=== PATIENT | female | born 1940 | race Hispanic/Latino ===

== ENCOUNTER 2017-10-28 14:12 | Emergency (ER) | payer MEDICARE ==
[2017-10-28 15:26] LABS: APPEARANCE,URINE Cloudy (CLEAR); BILIRUBIN,URINE Negative (NEGATIVE); COLOR,URINE Dark Yellow (YELLOW); GLUCOSE, URINE (UA) Negative (NEGATIVE); KETONES,URINE Negative (NEGATIVE); LEUKOCYTE ESTERASE ,URINE Large (NEGATIVE); NITRATE,URINE Negative (NEGATIVE); OCCULT BLOOD,URINE Large (NEGATIVE); PH,URINE 6.5 (5.0-8.0); PROTEIN,URINE POS 1+ (NEGATIVE)
[2017-10-28 15:33] LABS: BASOPHILS % (AUTO) 0.6 % (0.0-5.0); EOSINOPHILS % (AUTO) 1.1 % (0.0-8.0); LYMPHOCYTES % (AUTO) 15.5 % (21.0-51.0); MEAN CORPUSCULAR HEMOGLOBIN 30.3 pg (27.0-33.0); MEAN CORPUSCULAR HGB CONC 34.6 g/dL (32.0-36.0); MEAN CORPUSCULAR VOLUME 87.5 fL (79-99); MONOCYTES % (AUTO) 9.5 % (3.0-13.0); NEUTROPHILS % (AUTO) 73.3 % (40.0-77.0); PLATELET COUNT (AUTO) 192 K/uL (130-400); RED BLOOD CELL COUNT(AUTO) 3.65 MIL/uL (4.00-5.50); RED CELL DISTRIBUTION WIDTH 13.1 % (11.0-15.5); WHITE BLOOD COUNT (AUTO) 8.2 K/uL (4.8-10.8)
[2017-10-28 15:37] LABS: BACTERIA,URINE Few /HPF (None Seen); WBC,URINE 51-100 /HPF (0-1)
[2017-10-28 15:38] LABS: RENAL EPITHELIAL CELLS,URINE Moderate /LPF (None Seen); TRANSITIONAL EPI CELLS,URINE Few /LPF (None Seen)
[2017-10-28 15:42] LABS: CREATININE 0.7 mg/dL (0.5-1.5); POTASSIUM 3.3 mmol/L (3.5-5.1)
[2017-10-28 15:47] LABS: ALBUMIN 3.3 g/dL (3.5-5.0); BILIRUBIN,TOTAL 0.4 mg/dL (0.2-1.0); TOTAL PROTEIN, SERUM 6.9 g/dL (6.0-8.3)
[2017-10-28] MEDS ORDERED: LIDOCAINE HCL-MPF 1% 2ML VIAL ONE (16:22)
[2017-10-28] MEDS ORDERED: CEFTRIAXONE SODIUM 1 GM IVP ONE (16:24)
== END 2017-10-28 17:18 | disposition home or self-care (01) ==
LOC: EDH 14:12
DX: N39.0 Urinary tract infection, site not specified (principal); Z72.0 Tobacco use; Z88.0 Allergy status to penicillin
CPT/HCPCS: 36415; 80053; 81001; 85025; 87088; 87186; 96372; 99284; J0696; J3490

== ENCOUNTER → 2019-07-21 | Outpatient (CLI) | payer MEDICARE | END | disposition home or self-care (01) | LOC: RAH 11:06 | PROVIDERS: ATTEND Family Medicine | DX: M51.37 Other intervertebral disc degeneration, lumbosacral region (principal); M41.87 Other forms of scoliosis, lumbosacral region; K59.00 Constipation, unspecified | CPT/HCPCS: 72100; 74018 ==